=== PATIENT | male | born 1945 | race Caucasian/White ===

== ENCOUNTER 2016-12-08 12:47 | Emergency (ER) | payer OTHER, BC ==
[~2016-12-08] VITALS: Ht 175.3 cm; Wt 74.2 kg
[~2016-12-08 12:47] MED LIST: CIALIS5 MG PO; IRBESARTAN150 MG PO; LO-DOSE ASPIRIN81 M2 PO; NEXIUM40 MG PO; PROBIOTIC1 EAC1 PO; PROBIOTIC1 EAC5 PO; RANITIDINE HCL150 M1 PO; RANITIDINE HCL150 MG PO; SONATA5 MG PO; TYLENOL REGULA325 MG PO
[2016-12-08 13:49] LABS: ADD MIUA? NO; BILIRUBIN NEGATIVE; BLOOD NEGATIVE; COLOR YELLOW ((YELLOW)); GLUCOSE (STRIP) NEGATIVE; KETONES NEGATIVE; LEUKOCYTES NEGATIVE; NITRITE NEGATIVE; PROTEIN (STRIP) 30; SPECIFIC GRAVITY 1.024 (1.000-1.030); UCUL ADDED? NO; UROBILINOGEN 0.2 MG/DL (0.2-1.0)
[2016-12-08 13:59] LABS: EOSINOPHIL (%) 1.3 % (0-5); EOSINOPHIL COUNT 0.1 K/uL (0-0.3); HEMATOCRIT 37.1 % (38.0-50.0); IMMATURE GRANULOCYTE (%) 0.1 % (0.0-0.7); IMMATURE GRANULOCYTE COUNT 0.1 K/uL; LYMPHOCYTE COUNT 0.8 K/uL (1.0-2.8); MCH 30.1 PG (29.0-34.0); MCHC 34.8 G/DL (30.0-36.0); MCV 86.5 FL (86-99); MEAN PLAT.VOLUME 11.8 uM^3 (9.0-12.4); MONOCYTE (%) 4.8 % (3-12); MONOCYTE COUNT 0.4 K/uL (0-0.8); NEUTROPHIL (%) 83.9 % (45-76); NEUTROPHIL COUNT 7.1 K/uL (1.8-6.4); PLATELET COUNT 134 K/uL (156-360); RBC DIS.WIDTH-CV 14.8 % (11.8-14.6); RED BLOOD COUNT 4.29 M/uL (4.00-5.50); WHITE BLOOD COUNT 8.5 K/uL (4.1-10.2)
[2016-12-08 14:13] LABS: CHLORIDE 107 mEq/L (99-109); POTASSIUM 4.3 mEq/L (3.7-5.4); SODIUM 139 mEq/L (136-147)
[2016-12-08 14:15] LABS: GLUCOSE 98 mg/dL (70-99)
[2016-12-08 14:16] LABS: ANION GAP 11 MEQ/L (2-14)
[2016-12-08 14:17] LABS: TOTAL BILIRUBIN 1.1 mg/dL (0.0-1.0)
[2016-12-08 14:18] LABS: ALKALINE PHOSPHATASE 104 IU/L (3-129)
[2016-12-08 14:19] LABS: GFR ESTIMATE (CALCULATED) 46 mL/min/
[2016-12-08 14:20] LABS: UREA NITROGEN (BUN) 27 mg/dL (9-23)
[2016-12-08 14:22] LABS: LIPASE 20 U/L (1.0-51.0); TROP-I INTERPRETATION NEGATIVE; TROPONIN-I < 0.01 ng/mL (0.0-0.30)
[2016-12-08 19:36] VITALS: BP 111/71
== END 2016-12-08 19:38 | disposition home or self-care (01) ==
LOC: EME 12:47
PROVIDERS: Emergency Medicine
DX: K52.9 Noninfective gastroenteritis and colitis, unspecified (principal); K21.9 Gastro-esophageal reflux disease without esophagitis; Z79.82 Long term (current) use of aspirin
CPT/HCPCS: 74176; 80053; 81003; 83690; 84484; 85025; 93005; 99281; 99285; J2270; J2405; J7030; S0028

== ENCOUNTER → 2018-02-19 | Outpatient (CLI) | payer OTHER, BC | END | disposition home or self-care (01) | LOC: NUC 02-12 09:00 | DX: M19.042 Primary osteoarthritis, left hand (principal); M19.041 Primary osteoarthritis, right hand; D47.2 Monoclonal gammopathy | CPT/HCPCS: 78315; A9503 ==

== ENCOUNTER → 2018-05-15 | Outpatient (CLI) | payer OTHER, BC | END | disposition home or self-care (01) | LOC: NUC 10:40 | DX: R06.00 Dyspnea, unspecified (principal) | CPT/HCPCS: 78582; A9540; A9567 ==